=== PATIENT | male | born 1950 | race Caucasian/White ===

== ENCOUNTER 2017-11-29 13:04 | Inpatient (IN) | payer MEDICARE ==
[~2017-11-29] VITALS: Ht 167.6 cm; Wt 73.0 kg
--- NOTE | 2017-11-29 13:10 | NUR ---
[facility] PD: ON 515 DTO. MEDICAL CLEARANCE FOR GPS PLACEMENT. NOETD AGITATED, DIRECTABLE. VSS. SEEN BY MD FOR EVAL. SAFETY AND COMFORT MEASURES PROVIDED. WILL MONITOR.
[2017-11-29] MEDS ORDERED: OLANZAPINE 10 MG VIAL IM ONE ×2 (14:30→14:35)
[2017-11-29 14:37] LABS: BASOPHILS # (AUTO) 0.1 /CMM (0.0-0.2); BASOPHILS % (AUTO) 0.8 % (0.0-2.0); EOSINOPHILS # (AUTO) 0.1 /CMM (0.0-0.7); EOSINOPHILS % (AUTO) 0.7 % (0.0-6.0); HEMATOCRIT 43 % (39-51); HEMOGLOBIN 15.2 g/dL (13.5-17.5); LYMPHOCYTES # (AUTO) 1.5 /CMM (0.8-4.8); LYMPHOCYTES % (AUTO) 14.4 % (20.0-44.0); MEAN CORPUSCULAR HEMOGLOBIN 31 PG (26.0-33.0); MEAN CORPUSCULAR HGB CONC 35 g/dl (31.0-36.0); MEAN CORPUSCULAR VOLUME 89 fL (80-96); MONOCYTES # (AUTO) 1.1 /CMM (0.1-1.30); MONOCYTES % (AUTO) 10.6 % (2.0-12.0); NEUTROPHILS # (AUTO) 7.4 /CMM (1.8-8.9); NEUTROPHILS % (AUTO) 73.5 % (43.0-81.0); PLATELET COUNT (AUTO) 395 /CMM (150-450); RDW COEFFICIENT OF VARIATION 12.9 (11.5-15.0); RED BLOOD CELL COUNT(AUTO) 4.83 MIL/uL (4.5-6.0); WHITE BLOOD COUNT (AUTO) 10.2 K/uL (4.3-11.0)
[2017-11-29 14:47] LABS: CALCIUM, SERUM 9.5 mg/dL (8.5-10.1); CARBON DIOXIDE 28 mmol/L (21-32); CHLORIDE 101 mmol/L (98-107); GLUCOSE 282 mg/dL (74-106); POTASSIUM 4.4 mmol/L (3.5-5.1); SODIUM SERUM 137 mmol/L (136-145); UREA NITROGEN, BLOOD 26 mg/dL (7-18)
--- NOTE | 2017-11-29 14:50 | NUR ---
RN-CO: PAGED DR GAVIRIA TO NOTIFY HIM OF THIS ADMISSION.
[2017-11-29 14:53] LABS: ACETAMINOPHEN 0 ug/ml (10-30); ALANINE AMINOTRANSFERASE 63 U/L (12-78); ALBUMIN 3.8 g/dL (3.4-5.0); ALCOHOL, BLOOD < 3 mg/dL (0-0); ALKALINE PHOSPHATASE 76 U/L (46-116); ASPARTATE AMINOTRANSFERASE 37 U/L (15-37); BILIRUBIN,TOTAL 0.2 mg/dL (0.2-1.0); SALICYLATE 2.4 mg/dL (2.8-20.0); TOTAL PROTEIN, SERUM 7.8 g/dL (6.4-8.2)
[2017-11-29] MEDS ORDERED: LORAZEPAM INJ 2 MG/ML VIAL IM ONE (15:00)
--- NOTE | 2017-11-29 15:00 | NUR ---
RN-CO: DR GAVIRIA GAVE ADMITTING ORDERS.
[2017-11-29] MEDS ORDERED: LORAZEPAM INJ 2 MG/ML VIAL ONE (15:07)
--- NOTE | 2017-11-29 15:16 | NUR ---
REPORT TO TAVO QUAN FOR MARLENE
[2017-11-29] MEDS ORDERED: ZOLPIDEM TARTRATE 5 MG TABLET PO PRN (16:00)
[2017-11-29] MEDS ORDERED: ACETAMINOPHEN 325 MG TABLET PO PRN (16:00)
[2017-11-29] MEDS ORDERED: MAG HYDROX/AL HYDROX/SIMETH 30 ML UDC PO PRN (16:00)
[2017-11-29] MEDS ORDERED: MAGNESIUM HYDROXIDE 30 ML UDC PO PRN (16:00)
[2017-11-29 16:30] VITALS: BP 129/80
[2017-11-29] MEDS: LORAZEPAM 0.5 MG TABLET PO PRN (16:49)
--- NOTE | 2017-11-29 16:51 | NUR ---
GPS/R/N-NOTES NOTED PATIENT PACING IN THE UNIT UNABLE TO SIT STILL. OFFERED ATIVAN AND AGREES. ATIVAN 1MG P.O GIVEN PRN ORDER.
--- NOTE | 2017-11-29 18:23 | NUR ---
GPS/RN-NOTES ADMITTED 67 Y.O FEMALE PATIENT FROM [facility]. PER HOLD PATIENT ON 5150 FOR DANGER TO OTHERS/AGGRESSIVE BEHAVIOR WITH THE STAFF IN THE FACILITY. PATIENT WAS UNDER DR. GAVIRIA ( PYSCHIATRIST) AWARE OF THE ADMISSION WITH ORDERS. DR. RODRÍGUEZ ( SKIN DRIER) MADE AWARE. UPON FACE TO FACE ASSESSMENT WITH THE PATIENT,PATIENT IS ALERT ORIENTED X1,ANXIOUS WITH CONFUSION. PATIENT DID NOT VERBALIZE SI/HI/DENIES VISUAL/AUDITORY HALLUCINATIONS AT THIS TIME. PATIENT IS HYPERVERBAL. PATIENT RIGHTS WAS EXPLAINED TO HIM AND PATIENT RIGHT BOOKLET WAS GIVEN TO HIM. PATIENT WAS ORIENTED IN THE UNIT AND UNIT POLICIES. MARIA E MAXWELL ( PATIENT SISTER) [phone] MADE AWARE OF PATIENT ADMISSION.CONTRA BAND, SKIN ASSESSMENTS DONE. WILL ENDORSE TO THE INCOMING NURSE FOR CONTINUITY OF CARE.
[2017-11-29] MEDS ORDERED: CLON1TAB4 PO (18:54)
[2017-11-29] MEDS ORDERED: LORA1TAB PO (18:54)
[2017-11-29] MEDS ORDERED: ENAL2.5T PO (18:54)
[2017-11-29] MEDS ORDERED: METF500T4 PO (18:54)
[2017-11-29] MEDS ORDERED: AMLO10TA2 PO (18:54)
[2017-11-29] MEDS ORDERED: GLIP10TA11 PO (18:54)
[2017-11-29] MEDS ORDERED: HYDR12.55 PO (18:54)
[2017-11-29] MEDS ORDERED: FLUP1TAB8 PO (19:12)
[2017-11-29] MEDS ORDERED: AMIT25TA52 PO (19:12)
[2017-11-29] MEDS ORDERED: FLUP10TA7 PO ×2 (19:12)
[2017-11-29] MEDS ORDERED: BENZ1TAB7 PO (19:12)
--- NOTE | 2017-11-29 19:26 | NUR ---
GPS/RN-NOTES DR. ADAM CHIEF NURSING OFFICER FOR TODAY MADE AWARE OF PATIENT ADMISSION IN THE UNIT WITH T.O OF NICOTINE PATCH 21MG DAILY. NOTED AND CARRIED OUT.ALSO MD STATED SHE WILL RECONCILE PATIENT MEDICATIONS.
--- NOTE | 2017-11-29 19:30 | NUR ---
GPS RN NOTE, RECEIVED PATIENT AWAKE AND IN BED, NO S/S OR COMPLAINTS OF PAIN AT THIS TIME. PATIENT DISPLAYING NO S/S OF APPARENT DISTRESS AT THIS TIME. PATIENT BREATHING IS UNLABORED WITH EQUAL RISE AND FALL OF THE CHEST. PATIENT IS ALERT AND ORIENTED X 2 ON ROOM AIR WITH A SPO2 98 %. PATIENT IS MED COMPLIANT, ANXIOUS, COOPERATIVE, AND NEEDS REORIENTATION AT TIMES. PATIENT DENIES SI AND HI AT THIS TIME. PATIENT ASSISTED WITH TURNING AND REPOSITIONING Q2HR AND PRN FOR COMFORT AND CIRCULATION. PATIENT HAS NO NEEDS AT THIS TIME. PATIENT EDUCATED ON THE USE OF THE CALL MASTERSON. PATIENT BED SIDE RAILS UP X 2 FOR SAFETY, BED IS LOCKED AND LOW, WILL CONTINUE TO MONITOR THIS PATIENT WITH THE HELP OF STAFF.
[2017-11-29] MEDS: NICOTINE PATCH (21MG) 21 MG PATCH.TD24 TD SCH (19:56)
[2017-11-29 20:11] VITALS: BP 149/64
[2017-11-29] MEDS ORDERED: ALBUTEROL FS 2.5 MG/0.5 ML VIAL.NEB NEB PRN (21:00)
[2017-11-29] MEDS ORDERED: DEXTROSE 50%-WATER 50 ML DISP.SYRIN IV PRN (21:00)
[2017-11-29] MEDS: BLOOD SUGAR DIAGNOSTIC 1 EACH STRIP VI SCH (21:46)
--- NOTE | 2017-11-29 21:46 | NUR ---
GPS RN NOTE, PATIENT HAS A COMPLAINT OF NOT BEING ABLE TO SLEEP AND IS REQUESTING AMBIEN AT THIS TIME. PATIENT VITAL SIGNS ARE STABLE. GAVE AMBIEN 5MG PO HS ORDERED. WILL REASSESS FOR INSOMNIA AND I WILL CONTINUE TO MONITOR THIS PATIENT.
[2017-11-29] MEDS: *INSULIN REGULAR(HUMULIN R)HUM 100 UNIT/ML VIAL SQ PRN (21:49)
--- NOTE | 2017-11-29 21:50 | NUR ---
GPS RN NOTE, PERFORMED ACCU CHECK ON PATIENT WITH A BLOOD SUGAR RESULT OF 357. GAVE 10 UNITS OF REGULAR INSULIN PER SLIDING SCALE. WILL CONTINUE TO MONITOR THIS PATIENT.
[2017-11-30] MEDS: LORAZEPAM 0.5 MG TABLET PO PRN ×2 (01:10→15:34)
--- NOTE | 2017-11-30 01:10 | NUR ---
GPS RN NOTE, PATIENT HAS A COMPLAINT OF FEELING ANXIOUS AND IS REQUESTING ATIVAN AT THIS TIME. PATIENT VITAL SIGNS ARE STABLE. GAVE ATIVAN 1MG PO Q8HR PRN ORDERED. WILL REASSESS FOR ANXIETY AND I WILL CONTINUE TO MONITOR THIS PATIENT.
[2017-11-30] MEDS: BLOOD SUGAR DIAGNOSTIC 1 EACH STRIP VI SCH ×4 (07:46→21:06)
[2017-11-30 08:00] VITALS: BP 148/86
[2017-11-30] MEDS: METFORMIN 500 MG TABLET PO SCH ×2 (08:34→16:49)
[2017-11-30] MEDS: glipiZIDE 10 MG TABLET PO SCH ×2 (08:34→16:49)
[2017-11-30] MEDS: AMLODIPINE BESYLATE 10 MG TABLET PO SCH (08:35)
[2017-11-30] MEDS: NICOTINE PATCH (21MG) 21 MG PATCH.TD24 TD SCH (08:35)
[2017-11-30] MEDS: HYDROCHLOROTHIAZIDE 25 MG TABLET PO SCH (08:35)
[2017-11-30] MEDS: INSULIN REGULAR, HUMAN 100 UNIT/ML 3 ML VIAL SQ PRN ×3 (08:50→17:35)
[2017-11-30 09:05] LABS: CHOLESTEROL 221 mg/dL (<200); HDL CHOLESTEROL 70 mg/dL (40-60); LDL 146 mg/dL (0-99); TRIGLYCERIDES 48 mg/dL (30-150)
[2017-11-30 09:16] LABS: ALBUMIN 4.3 g/dL (3.4-5.0); BILIRUBIN,TOTAL 0.4 mg/dL (0.2-1.0); CALCIUM, SERUM 9.3 mg/dL (8.5-10.1); CREATININE 0.8 mg/dL (0.6-1.3); TOTAL PROTEIN, SERUM 8.6 g/dL (6.4-8.2)
[2017-11-30] MEDS: ENALAPRIL MALEATE (5 MG) 5 MG TABLET PO SCH (15:15)
--- NOTE | 2017-11-30 15:34 | NUR ---
RN Note: Patient is pacing and very anxious. Ativan 1 mg given.
[2017-11-30 15:53] VITALS: BP 143/95
[2017-11-30] MEDS: FLUPHENAZINE HCL 10 MG TABLET PO SCH ×2 (16:49→21:20)
[2017-11-30] MEDS: BENZTROPINE MESYLATE (1 MG) 1 MG TABLET PO SCH (16:49)
--- NOTE | 2017-11-30 19:20 | NUR ---
GPS RN NOTES: RECEIVED PATIENT VERY ANXIOUS, PACING, HIDING IN THE BATHROOM, PATIENT STATED I AM AFRAID, POLICE WILL TAKE ME. PATIENT SLOWLY ASSISTED BACK TO HIS BED AFTER REORIENTATION PROVIDED, PATIENT WAS CRAWLING ON THE FLOOR. ENCOURAGED PATIENT TO VERBALIZE THOUGHTS AND FEELINGS, ALL NON-PHARMACOLOGICAL INTERVENTIONS WERE PROVIDED BUT WITH MINIMAL HELP. PLACED A CALL TO DR. GAVIRIA NOTIFIED PATIENT'S CURRENT CONDITION WITH NEW ORDERS OF ZYPREXA 10MG IM X 1 NOW, AND ATIVAN 1MG IM X1 NOW, ORDERS NOTED AND CARRIED OUT. ADMINISTERED MEDICATIONS ORDERED, PROCEDURE TOLERATED WELL BY THE PATIENT, SAFETY PRECAUTIONS MAINTAINED AT ALL TIMES. WILL CONTINUE TO MONITOR [id number] FOR SAFETY AND BEHAVIOR.
[2017-11-30] MEDS ORDERED: OLANZAPINE 10 MG VIAL IM ONE (19:30)
[2017-11-30] MEDS ORDERED: LORAZEPAM INJ 2 MG/ML VIAL IM ONE (19:30)
[2017-11-30 20:00] VITALS: BP 106/65
[2017-11-30] MEDS: *INSULIN REGULAR(HUMULIN R)HUM 100 UNIT/ML VIAL SQ PRN (21:11)
[2017-11-30] MEDS: AMITRIPTYLINE HCL 25 MG TABLET PO SCH (21:12)
[2017-12-01 08:00] VITALS: BP 140/74
[2017-12-01] MEDS: BLOOD SUGAR DIAGNOSTIC 1 EACH STRIP VI SCH ×4 (08:17→22:00)
[2017-12-01] MEDS: INSULIN REGULAR, HUMAN 100 UNIT/ML 3 ML VIAL SQ PRN ×3 (08:32→17:53)
[2017-12-01] MEDS: AMLODIPINE BESYLATE 10 MG TABLET PO SCH (08:33)
[2017-12-01] MEDS: FLUPHENAZINE HCL 10 MG TABLET PO SCH ×4 (08:34→22:06)
[2017-12-01] MEDS: glipiZIDE 10 MG TABLET PO SCH ×2 (08:34→16:15)
[2017-12-01] MEDS: ENALAPRIL MALEATE (5 MG) 5 MG TABLET PO SCH (08:35)
[2017-12-01] MEDS: HYDROCHLOROTHIAZIDE 25 MG TABLET PO SCH (08:36)
[2017-12-01] MEDS: METFORMIN 500 MG TABLET PO SCH ×2 (08:36→16:14)
[2017-12-01] MEDS: NICOTINE PATCH (21MG) 21 MG PATCH.TD24 TD SCH (08:36)
[2017-12-01] MEDS: BENZTROPINE MESYLATE (1 MG) 1 MG TABLET PO SCH ×2 (08:36→16:15)
--- NOTE | 2017-12-01 10:20 | NUR ---
WOUND CARE CONSULT: PT PRESENTS WITH DRY CALLUSED HEELS WITH SOME CRACKING. NO TENDERNESS OR DRAINAGE NOTED. RECOMMENDATIONS MADE FOR SKIN CARE. DISCUSSED WITH NURSING STAFF. PT AMBULATES ALMOST CONSTANTLY. PT IS CONTINENT. WILL SEE PRN. JUSTICE IN AGREEMENT WITH PLAN OF CARE. Addendum: 12/01/17 at 1021 by LEXA HICKS WNDNU Amended: Links added.
[2017-12-01] MEDS: VITAMINS A AND D 56.7 GM TUBE TP SCH (11:51)
[2017-12-01] MEDS: LORAZEPAM 0.5 MG TABLET PO PRN (13:06)
--- NOTE | 2017-12-01 13:06 | NUR ---
RN NOTE: THE PATIENT IS VERY ANXIOUS AND PARANOID. HE THINKS THE POLICE ARE OUT TO GET HIM. LORAZEPAM 1MG GIVEN.
[2017-12-01 16:00] VITALS: BP 123/77
--- NOTE | 2017-12-01 16:16 | NUR ---
Initial Discharge Plan: Pt lives at [address] [place] [address] an Assisted living facility and his telephone # is . SW spoke with pts family, Reggie Denney Sr and Kamini (pts sister) Darwin for discharge planning purposes. Pts family agreed that pt needed a higher level of care going forward (i.e. prison facility). family asked if pt can return to [facility], where pt resided before. SW will follow up. SW will follow up and ensure pt is properly placed.
[2017-12-01 21:29] VITALS: BP 156/80
--- NOTE | 2017-12-01 22:03 | NUR ---
PATIENT REFUSED ACCUCHECK DONE AT THIS TIME. PATIENT STATED, " I DON'T WANT TO DO IT." TURNED HIS BACK AND COVERED HIS FACE.
[2017-12-01] MEDS: AMITRIPTYLINE HCL 25 MG TABLET PO SCH (22:07)
[2017-12-02] MEDS: LORAZEPAM 0.5 MG TABLET PO PRN ×2 (00:49→20:30)
[2017-12-02] MEDS: BLOOD SUGAR DIAGNOSTIC 1 EACH STRIP VI SCH ×4 (07:30→21:15)
--- NOTE | 2017-12-02 07:30 | NUR ---
RN NOTES PATIENT REFUSED ACCUCHECK AT THIS TIME. PATIENT STATED "I DONT WANT IT". TURNED HIS BACK AND WALKED AWAY.
[2017-12-02 08:00] VITALS: BP 148/90
[2017-12-02] MEDS: VITAMINS A AND D 56.7 GM TUBE TP SCH (08:16)
[2017-12-02] MEDS: ENALAPRIL MALEATE (5 MG) 5 MG TABLET PO SCH (08:18)
[2017-12-02] MEDS: glipiZIDE 10 MG TABLET PO SCH ×2 (08:18→17:07)
[2017-12-02] MEDS: AMLODIPINE BESYLATE 10 MG TABLET PO SCH (08:19)
[2017-12-02] MEDS: HYDROCHLOROTHIAZIDE 25 MG TABLET PO SCH (08:21)
[2017-12-02] MEDS: NICOTINE PATCH (21MG) 21 MG PATCH.TD24 TD SCH (08:22)
[2017-12-02] MEDS: FLUPHENAZINE HCL 10 MG TABLET PO SCH ×4 (08:22→21:10)
[2017-12-02] MEDS: BENZTROPINE MESYLATE (1 MG) 1 MG TABLET PO SCH ×2 (09:37→17:07)
[2017-12-02] MEDS: METFORMIN 500 MG TABLET PO SCH ×2 (09:37→17:08)
--- NOTE | 2017-12-02 12:00 | NUR ---
RN NOTES PATIENT STILL REFUSED ACCUCHECK SAYING "NO! I DONT WANT IT". KEEP ON ASKING IF THE POLICE CAME THEN HE WALKED AWAY. EDUCATION GIVEN BUT REFUSED TO LISTEN AND WALKED AWAY.
[2017-12-02 16:00] VITALS: BP 130/80
--- NOTE | 2017-12-02 19:00 | NUR ---
RN NOTES PATIENT STILL REFUSED ACCUCHECK SAYING "I DONT WANT IT". EDUCATION GIVEN BUT REFUSED TO LISTEN AND WALKED AWAY.
[2017-12-02 20:00] VITALS: BP 128/68
[2017-12-02] MEDS: AMITRIPTYLINE HCL 25 MG TABLET PO SCH (21:10)
[2017-12-02] MEDS: *INSULIN REGULAR(HUMULIN R)HUM 100 UNIT/ML VIAL SQ PRN (21:23)
[2017-12-03 08:00] VITALS: BP 116/94
[2017-12-03] MEDS: glipiZIDE 10 MG TABLET PO SCH ×2 (08:08→17:09)
[2017-12-03] MEDS: NICOTINE PATCH (21MG) 21 MG PATCH.TD24 TD SCH (08:08)
[2017-12-03] MEDS: BENZTROPINE MESYLATE (1 MG) 1 MG TABLET PO SCH ×2 (08:08→17:09)
[2017-12-03] MEDS: BLOOD SUGAR DIAGNOSTIC 1 EACH STRIP VI SCH ×4 (08:08→22:13)
[2017-12-03] MEDS: METFORMIN 500 MG TABLET PO SCH ×2 (08:09→17:09)
[2017-12-03] MEDS: FLUPHENAZINE HCL 10 MG TABLET PO SCH ×4 (08:09→21:52)
[2017-12-03] MEDS: AMLODIPINE BESYLATE 10 MG TABLET PO SCH (08:09)
[2017-12-03] MEDS: HYDROCHLOROTHIAZIDE 25 MG TABLET PO SCH (08:10)
[2017-12-03] MEDS: VITAMINS A AND D 56.7 GM TUBE TP SCH (08:11)
[2017-12-03] MEDS: ENALAPRIL MALEATE (5 MG) 5 MG TABLET PO SCH (08:12)
[2017-12-03] MEDS: INSULIN REGULAR, HUMAN 100 UNIT/ML 3 ML VIAL SQ PRN (12:01)
[2017-12-03 16:00] VITALS: BP 120/60
[2017-12-03 19:54] VITALS: BP 123/80
[2017-12-03] MEDS: AMITRIPTYLINE HCL 25 MG TABLET PO SCH (21:52)
[2017-12-03] MEDS: LORAZEPAM 0.5 MG TABLET PO PRN (21:52)
--- NOTE | 2017-12-04 02:09 | NUR ---
Pt's blood sugar level last night was 145 mg/dl & he refused Insulin.
--- NOTE | 2017-12-04 02:09 | NUR ---
Pt has been very delusional, with poor insight/judgement, disheveled, repetitive, anhedonic, quite anxious despite taking Ativan, & paranoid but med compliant w/o any promptings.
[2017-12-04 08:00] VITALS: BP 108/66
[2017-12-04] MEDS: FLUPHENAZINE HCL 10 MG TABLET PO SCH ×4 (08:57→22:09)
[2017-12-04] MEDS: BENZTROPINE MESYLATE (1 MG) 1 MG TABLET PO SCH ×2 (08:57→16:47)
[2017-12-04] MEDS: glipiZIDE 10 MG TABLET PO SCH ×2 (08:58→16:47)
[2017-12-04] MEDS: AMLODIPINE BESYLATE 10 MG TABLET PO SCH (08:58)
[2017-12-04] MEDS: HYDROCHLOROTHIAZIDE 25 MG TABLET PO SCH (08:58)
[2017-12-04] MEDS: NICOTINE PATCH (21MG) 21 MG PATCH.TD24 TD SCH (08:58)
[2017-12-04] MEDS: METFORMIN 500 MG TABLET PO SCH ×2 (08:58→16:47)
[2017-12-04] MEDS: ENALAPRIL MALEATE (5 MG) 5 MG TABLET PO SCH (08:59)
[2017-12-04] MEDS: BLOOD SUGAR DIAGNOSTIC 1 EACH STRIP VI SCH ×4 (09:00→22:11)
[2017-12-04] MEDS: VITAMINS A AND D 56.7 GM TUBE TP SCH (09:19)
--- NOTE | 2017-12-04 14:09 | NUR ---
Discharge Planning: SW faxed inquiries (face sheet, medical H&P, medication list, P&P) to the following facilities: [facility], [address] [place] [address]; and fax # [facility] [address]. [facility] [address]; and fax# [facility], [address] [place] [phone]; and fax # . Sw will follow up to ensure pt is properly and safely placed.
[2017-12-04 16:12] VITALS: BP 134/74
--- NOTE | 2017-12-04 19:30 | NUR ---
GPS RN NOTE, RECEIVED PATIENT AWAKE AND IN BED, NO S/S OR COMPLAINTS OF PAIN AT THIS TIME. PATIENT DISPLAYING NO S/S OF APPARENT DISTRESS AT THIS TIME. PATIENT BREATHING IS UNLABORED WITH EQUAL RISE AND FALL OF THE CHEST. PATIENT IS ALERT AND ORIENTED X 2 ON ROOM AIR WITH A SPO2 97 %. PATIENT IS MED COMPLIANT, ANXIOUS, COOPERATIVE, AND NEEDS REORIENTATION AT TIMES. PATIENT DENIES SI AND HI AT THIS TIME. PATIENT ASSISTED WITH TURNING AND REPOSITIONING Q2HR AND PRN FOR COMFORT AND CIRCULATION. PATIENT HAS NO NEEDS AT THIS TIME. PATIENT EDUCATED ON THE USE OF THE CALL MASTERSON. PATIENT BED SIDE RAILS UP X 2 FOR SAFETY, BED IS LOCKED AND LOW, WILL CONTINUE TO MONITOR THIS PATIENT WITH THE HELP OF STAFF.
[2017-12-04 19:50] VITALS: BP 150/96
[2017-12-04] MEDS: AMITRIPTYLINE HCL 25 MG TABLET PO SCH (22:09)
--- NOTE | 2017-12-04 22:11 | NUR ---
GPS RN NOTE, PERFORMED ACCU CHECK ON PATIENT WITH A BLOOD SUGAR RESULT OF 138. GAVE 2 UNITS OF REGULAR INSULIN PER SLIDING SCALE AT THIS TIME. WILL CONTINUE TO MONITOR THIS PATIENT.
[2017-12-04] MEDS: *INSULIN REGULAR(HUMULIN R)HUM 100 UNIT/ML VIAL SQ PRN (22:17)
[2017-12-05] MEDS: LORAZEPAM 0.5 MG TABLET PO PRN ×2 (01:44→19:34)
--- NOTE | 2017-12-05 01:44 | NUR ---
GPS RN NOTE, PATIENT HAS A COMPLAINT OF FELLING ANXIOUS AND REQUESTING ATIVAN AT THIS TIME. PATIENT VITAL SIGNS ARE STABLE. GAVE ATIVAN 1MG PO Q8HR PRN ORDERED. WILL REASSESS FOR ANXIETY AND I WILL CONTINUE TO MONITOR THIS PATIENT WITH THE HELP OF STAFF.
[2017-12-05 08:00] VITALS: BP 134/76
[2017-12-05] MEDS: glipiZIDE 10 MG TABLET PO SCH ×2 (08:09→16:40)
[2017-12-05] MEDS: NICOTINE PATCH (21MG) 21 MG PATCH.TD24 TD SCH (08:09)
[2017-12-05] MEDS: ENALAPRIL MALEATE (5 MG) 5 MG TABLET PO SCH (08:10)
[2017-12-05] MEDS: AMLODIPINE BESYLATE 10 MG TABLET PO SCH (08:11)
[2017-12-05] MEDS: METFORMIN 500 MG TABLET PO SCH ×2 (08:11→16:40)
[2017-12-05] MEDS: FLUPHENAZINE HCL 10 MG TABLET PO SCH ×4 (08:11→21:18)
[2017-12-05] MEDS: HYDROCHLOROTHIAZIDE 25 MG TABLET PO SCH (08:11)
[2017-12-05] MEDS: VITAMINS A AND D 56.7 GM TUBE TP SCH (08:11)
[2017-12-05] MEDS: BLOOD SUGAR DIAGNOSTIC 1 EACH STRIP VI SCH ×4 (08:14→21:41)
[2017-12-05] MEDS: BENZTROPINE MESYLATE (1 MG) 1 MG TABLET PO SCH ×2 (08:42→16:39)
[2017-12-05 16:11] VITALS: BP 140/58
--- NOTE | 2017-12-05 16:43 | NUR ---
Discharge Planning: DWAINE discussed scheduling an assessment for pt with Roxie from [facility] once pt improves for possible placement. SW will keep Roxie informed as to when she could come and assess pts appropriateness for their facility. SW will follow up to ensure pt is properly and safely discharged.
[2017-12-05] MEDS: INSULIN REGULAR, HUMAN 100 UNIT/ML 3 ML VIAL SQ PRN (17:30)
--- NOTE | 2017-12-05 17:53 | NUR ---
GPS/AVELINA BS 192 3 UNITS REGULAR INSULIN ADMINISTERED, WILL CONTINUE TO MONITOR. Addendum: 12/05/17 at 1756 by NANETTE REID RN BS 194
--- NOTE | 2017-12-05 19:36 | NUR ---
GPS RN NOTES PATIENT HAS A COMPLAINT OF FELLING ANXIOUS AND REQUESTING ATIVAN AT THIS TIME. PATIENT VITAL SIGNS ARE STABLE. GAVE ATIVAN 1MG PO PRN ORDERED. WILL REASSESS FOR ANXIETY ,WILL CONTINUE TO MONITOR .
[2017-12-05 20:07] VITALS: BP 130/78
[2017-12-05] MEDS: AMITRIPTYLINE HCL 25 MG TABLET PO SCH (21:17)
[2017-12-05] MEDS: *INSULIN REGULAR(HUMULIN R)HUM 100 UNIT/ML VIAL SQ PRN (21:40)
[2017-12-06] MEDS: BLOOD SUGAR DIAGNOSTIC 1 EACH STRIP VI SCH ×4 (07:42→21:36)
[2017-12-06 08:00] VITALS: BP 127/65
[2017-12-06] MEDS: BENZTROPINE MESYLATE (1 MG) 1 MG TABLET PO SCH ×2 (09:10→16:11)
[2017-12-06] MEDS: HYDROCHLOROTHIAZIDE 25 MG TABLET PO SCH (09:10)
[2017-12-06] MEDS: ENALAPRIL MALEATE (5 MG) 5 MG TABLET PO SCH (09:10)
[2017-12-06] MEDS: METFORMIN 500 MG TABLET PO SCH ×2 (09:10→16:11)
[2017-12-06] MEDS: FLUPHENAZINE HCL 10 MG TABLET PO SCH ×4 (09:11→21:13)
[2017-12-06] MEDS: glipiZIDE 10 MG TABLET PO SCH ×2 (09:11→16:11)
[2017-12-06] MEDS: AMLODIPINE BESYLATE 10 MG TABLET PO SCH (09:11)
[2017-12-06] MEDS: NICOTINE PATCH (21MG) 21 MG PATCH.TD24 TD SCH (09:11)
[2017-12-06] MEDS: VITAMINS A AND D 56.7 GM TUBE TP SCH (09:16)
[2017-12-06 16:00] VITALS: BP 112/79
[2017-12-06] MEDS: INSULIN REGULAR, HUMAN 100 UNIT/ML 3 ML VIAL SQ PRN (17:40)
--- NOTE | 2017-12-06 17:41 | NUR ---
GPS/RN-NOTES PATIENT BLOOD SUGAR WAS 188 MG/DL, 3 UNITS OF R INSULIN GIVEN PRN ORDER.
[2017-12-06 20:35] VITALS: BP 152/52
[2017-12-06] MEDS: AMITRIPTYLINE HCL 25 MG TABLET PO SCH (21:13)
[2017-12-06 23:00] VITALS: BP 135/66
[2017-12-07] MEDS: BLOOD SUGAR DIAGNOSTIC 1 EACH STRIP VI SCH ×4 (07:50→21:43)
[2017-12-07 08:00] VITALS: BP 130/82
[2017-12-07] MEDS: FLUPHENAZINE HCL 10 MG TABLET PO SCH ×3 (08:19→21:43)
[2017-12-07] MEDS: NICOTINE PATCH (21MG) 21 MG PATCH.TD24 TD SCH (08:19)
[2017-12-07] MEDS: BENZTROPINE MESYLATE (1 MG) 1 MG TABLET PO SCH ×2 (08:19→16:09)
[2017-12-07] MEDS: METFORMIN 500 MG TABLET PO SCH ×2 (08:19→16:09)
[2017-12-07] MEDS: glipiZIDE 10 MG TABLET PO SCH ×2 (08:19→16:09)
[2017-12-07] MEDS: HYDROCHLOROTHIAZIDE 25 MG TABLET PO SCH (08:21)
[2017-12-07] MEDS: ENALAPRIL MALEATE (5 MG) 5 MG TABLET PO SCH (08:21)
[2017-12-07] MEDS: AMLODIPINE BESYLATE 10 MG TABLET PO SCH (08:21)
[2017-12-07] MEDS: VITAMINS A AND D 56.7 GM TUBE TP SCH (09:36)
[2017-12-07] MEDS: INSULIN REGULAR, HUMAN 100 UNIT/ML 3 ML VIAL SQ PRN (12:09)
--- NOTE | 2017-12-07 13:16 | NUR ---
GPS/RN-NOTES PATIENT BLOOD SUGAR WAS 281MG/DL, 9 UNITS OF R INSULIN GIVEN PRN ORDER.
[2017-12-07 16:00] VITALS: BP 135/74
--- NOTE | 2017-12-07 17:03 | NUR ---
RT NOTE: PT STABLE, NO TX GIVEN/NEEDED, NO SOB NOTED, WILL MONITOR
[2017-12-07 20:00] VITALS: BP 148/75
[2017-12-07] MEDS: AMITRIPTYLINE HCL 25 MG TABLET PO SCH (21:43)
[2017-12-07] MEDS: *INSULIN REGULAR(HUMULIN R)HUM 100 UNIT/ML VIAL SQ PRN (21:52)
[2017-12-08 08:00] VITALS: BP 127/74
[2017-12-08] MEDS: BLOOD SUGAR DIAGNOSTIC 1 EACH STRIP VI SCH ×4 (08:26→21:12)
[2017-12-08] MEDS: NICOTINE PATCH (21MG) 21 MG PATCH.TD24 TD SCH (08:27)
[2017-12-08] MEDS: ENALAPRIL MALEATE (5 MG) 5 MG TABLET PO SCH (08:28)
[2017-12-08] MEDS: BENZTROPINE MESYLATE (1 MG) 1 MG TABLET PO SCH ×2 (08:28→17:00)
[2017-12-08] MEDS: METFORMIN 500 MG TABLET PO SCH ×2 (08:28→17:00)
[2017-12-08] MEDS: FLUPHENAZINE HCL 10 MG TABLET PO SCH ×3 (08:28→21:12)
[2017-12-08] MEDS: HYDROCHLOROTHIAZIDE 25 MG TABLET PO SCH (08:28)
[2017-12-08] MEDS: glipiZIDE 10 MG TABLET PO SCH ×2 (08:29→17:00)
[2017-12-08] MEDS: AMLODIPINE BESYLATE 10 MG TABLET PO SCH (08:29)
[2017-12-08] MEDS: VITAMINS A AND D 56.7 GM TUBE TP SCH (08:33)
--- NOTE | 2017-12-08 14:28 | NUR ---
Discharge planning" DWAINE discussed with Uvaldo Faustin Staff from [facility] pts discharge on 12/12/2017. SW will make arrangements next week to ensure pt is properly and safely discharged.
[2017-12-08 16:00] VITALS: BP 135/78
--- NOTE | 2017-12-08 18:58 | NUR ---
GPS RN NOTE: PT REFUSED ACCU CHECK AND ALL 17OO MEDICATIONS OFFERED X3 PT CONTINUE REFUSING WILL CONTINUE MONITORING FOR SAFETY AND BEHAVIOR Q 15 MIN
[2017-12-08 20:00] VITALS: BP 150/61
[2017-12-08] MEDS: AMITRIPTYLINE HCL 25 MG TABLET PO SCH (21:11)
[2017-12-08] MEDS: LORAZEPAM 0.5 MG TABLET PO PRN ×2 (21:12→23:15)
[2017-12-08] MEDS: *INSULIN REGULAR(HUMULIN R)HUM 100 UNIT/ML VIAL SQ PRN (21:13)
[2017-12-09 08:04] VITALS: BP 143/82
[2017-12-09] MEDS: BLOOD SUGAR DIAGNOSTIC 1 EACH STRIP VI SCH ×4 (08:29→22:41)
[2017-12-09] MEDS: BENZTROPINE MESYLATE (1 MG) 1 MG TABLET PO SCH ×2 (08:29→16:53)
[2017-12-09] MEDS: AMLODIPINE BESYLATE 10 MG TABLET PO SCH (08:29)
[2017-12-09] MEDS: glipiZIDE 10 MG TABLET PO SCH ×2 (08:29→16:54)
[2017-12-09] MEDS: HYDROCHLOROTHIAZIDE 25 MG TABLET PO SCH (08:30)
[2017-12-09] MEDS: FLUPHENAZINE HCL 10 MG TABLET PO SCH ×3 (08:30→22:41)
[2017-12-09] MEDS: ENALAPRIL MALEATE (5 MG) 5 MG TABLET PO SCH (08:30)
[2017-12-09] MEDS: METFORMIN 500 MG TABLET PO SCH ×2 (08:33→16:54)
[2017-12-09] MEDS: VITAMINS A AND D 56.7 GM TUBE TP SCH (08:44)
[2017-12-09] MEDS: NICOTINE PATCH (21MG) 21 MG PATCH.TD24 TD SCH (08:44)
[2017-12-09 15:45] VITALS: BP 134/70
[2017-12-09 20:00] VITALS: BP 153/69
[2017-12-09] MEDS: LORAZEPAM 0.5 MG TABLET PO PRN (20:42)
[2017-12-09] MEDS: AMITRIPTYLINE HCL 25 MG TABLET PO SCH (22:41)
[2017-12-09] MEDS: *INSULIN REGULAR(HUMULIN R)HUM 100 UNIT/ML VIAL SQ PRN (22:44)
[2017-12-10] MEDS: BLOOD SUGAR DIAGNOSTIC 1 EACH STRIP VI SCH ×4 (07:49→21:27)
[2017-12-10] MEDS: BENZTROPINE MESYLATE (1 MG) 1 MG TABLET PO SCH ×2 (09:10→17:00)
[2017-12-10] MEDS: FLUPHENAZINE HCL 10 MG TABLET PO SCH ×3 (09:10→21:13)
[2017-12-10] MEDS: METFORMIN 500 MG TABLET PO SCH ×2 (09:10→17:00)
[2017-12-10] MEDS: glipiZIDE 10 MG TABLET PO SCH ×2 (09:10→17:00)
[2017-12-10] MEDS: AMLODIPINE BESYLATE 10 MG TABLET PO SCH (09:10)
[2017-12-10] MEDS: NICOTINE PATCH (21MG) 21 MG PATCH.TD24 TD SCH (09:10)
[2017-12-10] MEDS: HYDROCHLOROTHIAZIDE 25 MG TABLET PO SCH (09:11)
[2017-12-10] MEDS: VITAMINS A AND D 56.7 GM TUBE TP SCH (09:11)
[2017-12-10] MEDS: ENALAPRIL MALEATE (5 MG) 5 MG TABLET PO SCH (09:11)
[2017-12-10] MEDS: INSULIN REGULAR, HUMAN 100 UNIT/ML 3 ML VIAL SQ PRN (12:15)
[2017-12-10 16:00] VITALS: BP 118/54
--- NOTE | 2017-12-10 17:18 | NUR ---
RN NOTE PATIENT REFUSED ACCUCHECK. OFFERED 3 TIMES. WILL CONTINUE TO MONITOR Q15 MINS.
--- NOTE | 2017-12-10 17:41 | NUR ---
PATIENT REFUSED HIS 1700 MEDS. OFFERED 3X. PATIENT WILL BE MONITORED [id number] FOR SAFETY.
[2017-12-10 19:36] VITALS: BP 159/79
[2017-12-10] MEDS: AMITRIPTYLINE HCL 25 MG TABLET PO SCH (21:13)
--- NOTE | 2017-12-11 02:10 | NUR ---
GPS RN NOTES PT. REFUSED WEEKLY SKIN REASSESSMENT AND BODY CHECK , PT STATED DON'T BOTHER ME . ENCOURAGED X3 EXPLAINED RISKS AND BENEFITS BUT PT. STILL REFUSED
[2017-12-11 08:00] VITALS: BP 124/57
--- NOTE | 2017-12-11 08:00 | NUR ---
[id number]: BLOOD SUGAR IS 130 MG/DL AND NO INSULIN COVERAGE REQUIRED AT THIS TIME
[2017-12-11] MEDS: BLOOD SUGAR DIAGNOSTIC 1 EACH STRIP VI SCH ×4 (08:14→22:00)
[2017-12-11] MEDS: NICOTINE PATCH (21MG) 21 MG PATCH.TD24 TD SCH (08:49)
[2017-12-11] MEDS: FLUPHENAZINE HCL 10 MG TABLET PO SCH ×3 (08:49→21:08)
[2017-12-11] MEDS: HYDROCHLOROTHIAZIDE 25 MG TABLET PO SCH (08:50)
[2017-12-11] MEDS: METFORMIN 500 MG TABLET PO SCH ×2 (08:51→16:43)
[2017-12-11] MEDS: BENZTROPINE MESYLATE (1 MG) 1 MG TABLET PO SCH ×2 (08:51→16:43)
[2017-12-11] MEDS: ENALAPRIL MALEATE (5 MG) 5 MG TABLET PO SCH (08:51)
[2017-12-11] MEDS: glipiZIDE 10 MG TABLET PO SCH ×2 (08:51→16:43)
[2017-12-11] MEDS: AMLODIPINE BESYLATE 10 MG TABLET PO SCH (08:51)
[2017-12-11] MEDS: VITAMINS A AND D 56.7 GM TUBE TP SCH (08:59)
[2017-12-11] MEDS: INSULIN REGULAR, HUMAN 100 UNIT/ML 3 ML VIAL SQ PRN (13:02)
--- NOTE | 2017-12-11 13:02 | NUR ---
[id number]: BLOOD SUGAR IS 221 MG/DL AND GAVE 6 UNITS OF REGULAR INSULIN
[2017-12-11 16:00] VITALS: BP 136/57
--- NOTE | 2017-12-11 17:08 | NUR ---
[id number]: PT REFUSED ACCU CHECK
[2017-12-11] MEDS: LORAZEPAM 0.5 MG TABLET PO PRN (18:42)
--- NOTE | 2017-12-11 18:42 | NUR ---
[id number]: GAVE ATIVAN 1 MG PO DUE TO SEVERE ANXIETY UPON PT REQUEST AND WILL CONTINUE TO MONITOR FOR EFFECTIVENESS OF MEDICATION
[2017-12-11 19:54] VITALS: BP 148/83
[2017-12-11] MEDS: AMITRIPTYLINE HCL 25 MG TABLET PO SCH (21:08)
[2017-12-12] MEDS: BLOOD SUGAR DIAGNOSTIC 1 EACH STRIP VI SCH ×2 (07:30→12:00)
[2017-12-12 07:57] VITALS: BP 163/81
[2017-12-12] MEDS: AMLODIPINE BESYLATE 10 MG TABLET PO SCH (08:07)
[2017-12-12] MEDS: METFORMIN 500 MG TABLET PO SCH (08:07)
[2017-12-12] MEDS: FLUPHENAZINE HCL 10 MG TABLET PO SCH (08:07)
[2017-12-12] MEDS: BENZTROPINE MESYLATE (1 MG) 1 MG TABLET PO SCH (08:07)
[2017-12-12] MEDS: NICOTINE PATCH (21MG) 21 MG PATCH.TD24 TD SCH (08:07)
[2017-12-12 08:08] VITALS: BP 163/81
[2017-12-12] MEDS: HYDROCHLOROTHIAZIDE 25 MG TABLET PO SCH (08:08)
[2017-12-12] MEDS: ENALAPRIL MALEATE (5 MG) 5 MG TABLET PO SCH (08:08)
[2017-12-12] MEDS: VITAMINS A AND D 56.7 GM TUBE TP SCH (08:11)
[2017-12-12] MEDS: glipiZIDE 10 MG TABLET PO SCH (08:13)
--- NOTE | 2017-12-12 10:06 | NUR ---
RN-CO: DR GAVIRIA SEEN AND EXAMINED THE PATIENT WITH ORDERS TO DISCONTINUE HOLD AND DISCHARGE PATIENT NOTED AND CARRIED OUT.
--- NOTE | 2017-12-12 11:15 | NUR ---
DIRECTOR CHILD NOTE :PATIENT ALERT ,DENIES SI/HI/AVH ,VS STABLE ,NO C/O PAIN .AMBULATORY AND INDEPENDENT . AND NOTIFIED WITH DISCHARGE ORDERS ,ALL ORDERS CARRIED OUT .ALL BELONGINGS AND ALL HIS MONEY RETURNED TO PATIENT .PATIENT REFUSED DISCHARGE PHOTOS .REPORT GIVEN TO GRACIE QUAN IN [facility] .PATIENT DISCHARGE WITH AMBULANCE.
--- NOTE | 2017-12-13 14:45 | NUR ---
Discharge Note: Patient will be discharged to [facility], [address] [facility]. [facility] [address]; via ambulance (trip # [id number]) at 1 pm. Pt, and pts father Reggie Oleary have been notified and are in agreement. Pts Filtration Plant Mechanic is Dr. Reilly, [address] [facility] [address]. [address] [place] [address]; and Psychiatrist is Dr. Arriaga, [address] [facility]. [address] [place] [address]; ; who will provide care to pt at the facility. Addendum: 12/13/17 at 1454 by MARIMAR ISIDRO Discharge date 12/12/2017 Pt was provided with referrals to the [employer] 800-LUNGUSA and [employer] [phone]. Pt was also provided handouts from [employer]; which provides information about location mtgs. DWAINE encouraged pt to seek out referrals for information.
== END 2017-12-12 15:53 | DRG 885 ==
LOC: ER 13:07 → GPS 15:09
PROVIDERS: ADMIT Psychiatry & Neurology Psychiatry; ATTEND Psychiatry & Neurology Psychiatry
DX: F20.0 Paranoid schizophrenia (principal); E11.9 Type 2 diabetes mellitus without complications; J44.9 Chronic obstructive pulmonary disease, unspecified; I10 Essential (primary) hypertension; Z85.51 Personal history of malignant neoplasm of bladder; F17.200 Nicotine dependence, unspecified, uncomplicated; E66.9 Obesity, unspecified; F29 Unspecified psychosis not due to a substance or known physiological condition; Z68.26 Body mass index [BMI] 26.0-26.9, adult
CPT/HCPCS: 36415; 80048-TC; 80053-TC; 80061-TC; 80076-TC; 82962-TC; 85025-TC; 87081-TC; 92611-TC; A4606; G0480; J1815; J2060; J3490; Z7610